=== PATIENT | male | born 1970 | race Caucasian/White ===

== ENCOUNTER 2025-06-05 11:14 | Inpatient (IN) | payer SELFPAY ==
[2025-06-05] VITALS (19 sets, daily range): BP systolic 109–158; BP diastolic 74–105; BMI 29.8; BMI 29.2
--- NOTE | 2025-06-05 08:50 | ED.GENMED ---
Addendum entered and electronically signed by Adan Medrano DO 06/05/25 17:51:
PROCEDURE NOTE:
After initial ED note signed, pt seized then had prolonged post-ictal state and very agitated
Intubated for airway protection
Gave 20mg Etomidate, 100mg Succhinylcholine
Intubated in 1 attempt w/ Glidescope
24cm at lip; 8.0 tube
Addendum entered and electronically signed by Riana Loja PA-C 06/05/25 12:46:
1230 - patient admitted to the hospitalist and pending bed upstairs. To the bedside by RN and family for witnessed seizure. Seizure activity was tonic-clonic and lasted about 2 minutes. Given 2 mg of Ativan IV. Keppra ordered. Hospitalist and
neurology updated. Patient's level of care upgraded to ICU.
Original Note:
History of Present Illness
<Riana Loja PA-C - Last Filed: 06/05/25 10:34>
General
Chief Complaint: Change in Mental Status
Time Seen by Provider: 06/05/25 08:45
History of Present Illness
History of Present Illness:
Miguel is a 54-year-old male with no reported past medical history woke up this morning and went to the bathroom and upon returning from the bathroom felt that he was confused and not acting his normal self. Patient just recalls waking up on
the couch but no other events.
arrives about an hour and a half after patient is able to provide more history. States that they had argument last night and she would put out 9:30 PM. Patient was reportedly throwing things and breaking things. Woke up this morning around 7
AM to hear him in the bathroom and he was unsure if he had fallen or if he was continuing to throw things. Went up to bedroom to find him on the bed saying help me.
Past History
<Riana Loja PA-C - Last Filed: 06/05/25 10:34>
Past History
ED Past Medical History: None
ED Past Surgical History: Orthopedic
Social History
Tobacco: Non-smoker
Alcohol: Occasional
Drug: None
Personal:
Living: with family
Employment: Employed
Family History
Family History: Other (Noncontributory)
Phy Exam
<Riana Loja PA-C - Last Filed: 06/05/25 10:34>
General Physical Exam
General Presentation: well appearing and no apparent distress
General Skin: warm and dry
General Habitus: normal
General Mental: alert and confused (oriented to person and place)
General Hydration: appears well hydrated
ENT Exam
ENT Exam: EOMI, pharynx normal, neck supple and normocephalic
Eye Exam
Eye Exam: PERRL, cornea clear and conjunctiva normal
Cardiovascular Exam
Cardiovascular Exam: regular rate/rhythm, no edema, no murmur and normal peripheral pulses
Pulmonary Exam
Pulmonary Exam: lungs clear, no respiratory distress, no rales, no crackles, no rhonchi, no stridor, no wheezing and no cough
Gastrointestinal Exam
Gastrointestinal Exam: normal bowel sounds, non tender, soft, no organomegaly, no pulsatile mass and non distended
Neurological Exam
Neurological Exam: alert, oriented x3, no motor deficits and speech normal
Musculoskeletal Exam
Musculoskeletal Exam: full ROM and no edema
Skin Exam
Skin Exam: normal color, warm/dry, no rash, no petechia and other (Left flank ecchymosis, abrasion right fourth finger, abrasion right archer)
Psychiatric Exam
Psychiatric Exam: normal mood/affect
Scores
<Riana Loja PA-C - Last Filed: 06/05/25 10:34>
NIH Stroke Score
Level of Consciousness: 0 - Alert
LOC Questions: 1-Answers one correctly
LOC Commands: 0-Performs both correctly
Best Horizontal Gaze: 0-Normal
Visual Mane: 0=Normal, no visual loss
Facial Palsy: 0=Normal, symmetrical
Motor - Right Arm: 0=No drift 10 seconds
Motor - Left Arm: 0=No drift 10 seconds
Motor - Right Le-No drift 5 seconds
Motor - Left Le-No drift 5 seconds
Limb Ataxia: 0-Absent
Sensation: 0-Normal
Best Language: 0-No aphasia
Dysarthria: 0-Normal
Extinction and Inattention: 0-No abnormality
NIH Total Score:: 1
<Adan Medrano DO - Last Filed: 06/05/25 10:45>
NIH Stroke Score
NIH Total Score:: 1
Course
<Riana Loja PA-C - Last Filed: 06/05/25 10:34>
Orders/Labs/Results
Orders:
Orders
06/05/25 08:41
CT Head W/o Iv Contrast Urgent
Comment:
Reason For Exam: AMS
06/05/25 08:45
CT Head & Neck Angio W/wo IV Urgent
Comment:
Reason For Exam: altered mental status
06/05/25 08:59
Alcohol Urgent
Complete Blood Count/With Diff Urgent
Comprehensive Metabolic Panel Urgent
Creatine Phosphokinase Urgent
Comment: ADD ON
PTT Urgent
Prothrombin Time Urgent
TSH Reflex To Free T4 Urgent
Comment: ADD ON
06/05/25 09:08
Ondansetron Injectable [Zofran] 4 mg IV NOW STA
06/05/25 09:09
Ondansetron Injectable [Zofran] 4 mg .ROUTE .STK-MED ONE
06/05/25 09:13
Electrocardiogram (*1) Urgent
Reason for Study: Vertigo / Dizzy
EKG- Treatment ONCE
06/05/25 09:14
Troponin I Urgent
06/05/25 09:27
Add On- LAB Urgent
Tests Added?: alcohol
06/05/25 10:01
Acetone [B-Hydroxybutyrate] Urgent
Lactic Acid Urgent
Venous Blood Gas Urgent
%Oxygen/Room Air: 96
06/05/25 10:15
Urine Drug Abuse Screen Urgent
Date Specimen was Collected: 06/05/25
Time Specimen was Collected: 10:13
06/05/25 10:18
Add On- LAB Routine
Tests Added?: CPK, TSH with reflex FT4
MRI Brain [MR Brain W/o & With Contrast] Routine
Comment:
Reason For Exam: transient amnesia
Recent pill cam endoscopy?: No
Abnormal Lab Results
06/05/25 06/05/25 06/05/25
08:59 09:03 10:01
Abs Immat Gran (auto) 0.1 H 10^3/uL
(0-0.05)
Absolute Neuts (auto) 6.8 H 10^3/uL
(1.4-6.5)
Immature Gran % 0.9 H %
(0-0.5)
VBG pH 7.31 L
(7.32-7.43)
VBG pO2 57 H mmHg
(30-50)
VBG HCO3 21.1 L mmol/L
(22-27)
Chloride 108 H mmol/L
(98-107)
Carbon Dioxide 16 L mmol/L
(22-30)
Glucose 188 H mg/dl
(70-99)
Lactic Acid 2.6 H mmol/L
(0.7-2.0)
POC Glucose 166 H mg/dl
(70-99)
06/05/25 08:59
06/05/25 08:59
Vital Signs
Initial and Last Documented VS:
Initial Vital Signs
Pulse Resp
79 17
06/05/25 08:59 06/05/25 08:59
Last Documented Vital Signs
Temp Pulse Resp BP Pulse Ox
36.7 C 69 16 132/93 99
06/05/25 09:04 06/05/25 10:30 06/05/25 10:30 06/05/25 10:00 06/05/25 09:04
<Adan Medrano, DO - Last Filed: 06/05/25 10:45>
Orders/Labs/Results
Orders:
Orders
06/05/25 08:41
CT Head W/o Iv Contrast Urgent
Comment:
Reason For Exam: AMS
06/05/25 08:45
CT Head & Neck Angio W/wo IV Urgent
Comment:
Reason For Exam: altered mental status
06/05/25 08:59
Alcohol Urgent
Complete Blood Count/With Diff Urgent
Comprehensive Metabolic Panel Urgent
Creatine Phosphokinase Urgent
Comment: ADD ON
PTT Urgent
Prothrombin Time Urgent
TSH Reflex To Free T4 Urgent
Comment: ADD ON
06/05/25 09:08
Ondansetron Injectable [Zofran] 4 mg IV NOW STA
06/05/25 09:09
Ondansetron Injectable [Zofran] 4 mg .ROUTE .STK-MED ONE
06/05/25 09:13
Electrocardiogram (*1) Urgent
Reason for Study: Vertigo / Dizzy
EKG- Treatment ONCE
06/05/25 09:14
Troponin I Urgent
06/05/25 09:27
Add On- LAB Urgent
Tests Added?: alcohol
06/05/25 10:01
Acetone [B-Hydroxybutyrate] Urgent
Lactic Acid Urgent
Venous Blood Gas Urgent
%Oxygen/Room Air: 96
06/05/25 10:15
Urine Drug Abuse Screen Urgent
Date Specimen was Collected: 06/05/25
Time Specimen was Collected: 10:13
06/05/25 10:18
Add On- LAB Routine
Tests Added?: CPK, TSH with reflex FT4
MRI Brain [MR Brain W/o & With Contrast] Routine
Comment:
Reason For Exam: transient amnesia
Recent pill cam endoscopy?: No
Abnormal Lab Results
06/05/25 06/05/25 06/05/25
08:59 09:03 10:01
Abs Immat Gran (auto) 0.1 H 10^3/uL
(0-0.05)
Absolute Neuts (auto) 6.8 H 10^3/uL
(1.4-6.5)
Immature Gran % 0.9 H %
(0-0.5)
VBG pH 7.31 L
(7.32-7.43)
VBG pO2 57 H mmHg
(30-50)
VBG HCO3 21.1 L mmol/L
(22-27)
Chloride 108 H mmol/L
(98-107)
Carbon Dioxide 16 L mmol/L
(22-30)
Glucose 188 H mg/dl
(70-99)
Lactic Acid 2.6 H mmol/L
(0.7-2.0)
POC Glucose 166 H mg/dl
(70-99)
06/05/25 08:59
06/05/25 08:59
Vital Signs
Initial and Last Documented VS:
Initial Vital Signs
Pulse Resp
79 17
06/05/25 08:59 06/05/25 08:59
Last Documented Vital Signs
Temp Pulse Resp BP Pulse Ox
36.7 C 69 16 132/93 99
06/05/25 09:04 06/05/25 10:30 06/05/25 10:30 06/05/25 10:00 06/05/25 09:04
<Riana Loja PA-C - Last Filed: 06/05/25 10:34>
MDM/Problems Addressed
Differential Diagnosis Includes:
Patient last known well greater than 4 hours prior to arrival. Initial NIH of 1 due to confusion. Patient was taken immediately to CAT scan for CT head and CTA head and neck which were negative for any intracranial injury or large vessel
occlusion. After returning from the CT patient started feeling nauseous and began vomiting. 4 mg of Zofran was given IV with improvement. Discussed with neurology who came to the bedside and evaluate the patient. His mental status did begin to
improve and he is starting to remember events of the night before this morning. Neurology feels that this is most likely transient global ischemia but would like to obtain MRI with and without contrast to rule out any structural abnormality and
EEG. EEG will be able to be completed until tomorrow. Patient will be admitted to the hospitalist service for continued workup
Also of noted his bicarb was 16. VBG lactic and acetone added on to rule out additional causes of altered mental status with this derangement. EG obtained and normal sinus rhythm. Troponin negative.
<Riana Loja PA-C - Last Filed: 06/05/25 10:34>
*Pulse Oximetry
Patient hypoxic: no
*Critical Care Note
Total Time (30-74mins, 75-104mins- exclusive of procedures): Not Applicable
ED Attending Note
<Riana Loja PA-C - Last Filed: 06/05/25 10:34>
-
Portions of this chart may have been created with voice recognition software.� Occasional wrong word or��sound alike� substitutions may have occurred due to the inherent limitations of voice recognition software.
<Adan Medrano, DO - Last Filed: 06/05/25 10:45>
ED Attending Note
Patient seen and examined by attending physician: Yes
I performed the substantive portion of visit, reviewed & personally made and approve the management plan that is documented in note by myself or ANNEMARIE.: Yes
ED Attending Note:
I evaluated patient at bedside. Limited history currently as family is not currently present. He woke up this morning confused. States that he went to bed last night around 10 PM. On exam he has trouble naming his age and naming the month.
Memory appears to be impaired. May have transient global amnesia. CT imaging obtained. He states he had some neurosurgical procedure in the past a few years ago that he thinks may have been a meningioma resection. Blood work suggest metabolic
acidosis.
Discharge Plan
Departure
Patient Disposition: Admit
Date of Disposition: 06/05/25
Time of Disposition: 10:17
Presentation/result/management discussed w/ accepting MD/DO: Hospitalist
Discharge Problem:
TGA (transient global amnesia), Altered mental status
Prescriptions:
No Action
No Current Medications
0
Interventions
Interventions:
*General Assessment Last Done: 06/05/25 09:04
*Neglect/Abuse Screening Last Done: 06/05/25 09:04
*ED COVID-19 Vaccine History Last Done: 06/05/25 09:04
*ED Influenza Vaccine History Last Done: 06/05/25 09:04
[facility] Fall Risk Assessment Tool Last Done: 06/05/25 09:04
*Risk Screen - Suicide (C-SSRS) Last Done: 06/05/25 09:04
ED- Pulmonary Assessment Last Done: 06/05/25 09:00
ED- Neurological Assessment Last Done: 06/05/25 09:00
ED- Cardiac Assessment Last Done: 06/05/25 09:00
ED Swallowing Screen Last Done: 06/05/25 10:39
Discharge Date and Time
Print Language: DANISH
[2025-06-05 09:05] LABS: Glucose - Point of Care 166 mg/dl (70-99)
[2025-06-05 09:09] LABS: Hematocrit 46.1 % (39.0-52.0); Hemoglobin 16.0 g/dL (13.0-18.0); Mean Corp Hgb Conc. 34.7 g/dL (33.0-37.0); Mean Corpuscular Volume 85.1 fL (80.0-94.0); Nucleated Red Blood Cells % 0 % (-); Platelet Count 205 10^3/uL (130-400); Red Cell Dist. Width 12.0 % (11.5-14.5)
[2025-06-05] MEDS: ZOFRAN 4 MG IV (09:11)
[2025-06-05 09:18] LABS: ALT (SGPT) 24 U/L (0-50); AST (SGOT) 26 U/L (17-59); Albumin 4.4 g/dl (3.5-5.0); Alkaline Phosphatase 57 U/L (38-126); Blood Urea Nitrogen 14 mg/dl (9-20); Calcium 9.1 mg/dl (8.4-10.2); Carbon Dioxide 16 mmol/L (22-30); Chloride 108 mmol/L (98-107); Estimated Creatinine Clearance 108 ml/min; Glucose 188 mg/dl (70-99); Potassium 4.5 mmol/L (3.5-5.1); Sodium 136 mmol/L (135-145); Total Protein 7.1 g/dl (6.3-8.2); eGFR > 60.00
[2025-06-05 09:27] LABS: INR 1.02; PT 13.5 Sec (11.4-14.6)
[2025-06-05 09:28] LABS: APTT 28.8 Sec (23.4-35.0)
[2025-06-05 09:44] LABS: Troponin I < 0.012 ng/ml
[2025-06-05 10:16] LABS: Venous Blood Gas B.E. -5.0 mmol/L (-4 to +4); Venous Blood Gas O2 Sat % 89.0 %
[2025-06-05 10:20] LABS: Venous Blood Gas O2 Therapy 96
--- NOTE | 2025-06-05 10:43 | HPS.HSE ---
Family Physician
-
Family Physician: NOT KNOW UNKNOWN - PT DOES
Chief Complaint
-
unresponsiveness
History of Present Illness
54yo M with PMHx of anxiety on medical marijuana leyla from home with episode of unresponsiveness. He had stressful evening due to argument with his that lasted all the way till 4am. At 7 am he came to the bedroom and went downtairs.
That is hen she heard a lot of noise, thinking that he is braking something in these and then it became quiet, so she went upstairs and found her on th bed, unresponsive drooling some saliva. He slowly regained cautiousness, but still was
confuesed. No spontaneous urination, defecation or tongue bite noted. No seizure like activity reported by bystanders. Seen in ED with neg CT and CTA head. Patient back to baseline when seen on this admiison. Basic labs unremarkable
Medical History
Past Medical History
Past Medical History: Reports Other
Additional Past Medical History:
See above
Past Surgical History: Reports Other
Additional Past Surgical History:
R humeral Fx s/p ORIF
Social History
Tobacco: Non-smoker
Alcohol: None
Drug: Marijuana
Family History
Family History: Not pertinent
Allergies / Home Medications
Allergies reflects when Allergies were last updated in [employer].
Home Medications with original date entered in [employer]
Allergy/Medication List:
Allergies
Allergy/AdvReac Type Severity Reaction Status Date / Time
No Known Allergies Allergy Verified 06/05/25 08:59
Home Medications
No Meds [No Current Medications] 06/05/25
Review of Systems
-
History Source: Patient and Family
A 12 point ROS was completed and negative except as noted: Yes
Constitutional: Reports See HPI
Physical Exam
Vital Signs
Vital Signs
Temp Pulse Resp BP Pulse Ox
98.1 F 69 16 132/93 99
06/05/25 09:04 06/05/25 10:30 06/05/25 10:30 06/05/25 10:00 06/05/25 09:04
Physical Exam
General: Well Developed, Well Nourished and No Apparent Distress
HEENT: NormoCephalic, Anicteric and Moist mucous membranes
Respiratory: Clear; No Wheezes or Crackles
Cardiac: S1/S2 and Regular Rhythm; No Murmur
GI: Soft, Non Tender and Non Distended
Musculoskeletal: No Clubbing, No Cyanosis and No Edema
Skin: Warm; No Rash or Jaundice
Neuro: Awake, Alert, Oriented, AO x 3, No Motor Deficits and Nonfocal/grossly intact
Psych: Calm
Laboratory Results
-
06/05/25 08:59
06/05/25 08:59
Laboratory Results
PT 13.5 Sec (11.4-14.6) 06/05/25 08:59
INR 1.02 06/05/25 08:59
APTT 28.8 Sec (23.4-35.0) 06/05/25 08:59
Lactic Acid 2.6 mmol/L (0.7-2.0) H 06/05/25 10:01
Total Bilirubin 0.7 mg/dl (0.2-1.3) 06/05/25 08:59
AST 26 U/L (17-59) 06/05/25 08:59
ALT 24 U/L (0-50) 06/05/25 08:59
Alkaline Phosphatase 57 U/L (38-126) 06/05/25 08:59
Troponin I < 0.012 ng/ml 06/05/25 09:14
Data Reviewed
-
CT Scan: Report Reviewed by me
Lab Data: Labs Reviewed by me
Impression/Plan
-
A/P:
#Episode of unresponsiveness, unclear if true seizure with transient amnesia
can be provoked by fatigue and lack of sleep
Neurology consult
Seizure precautions
MRI brain and EEG
UDS pending, alcohol not detected
telemetry, check TSH, Echo
#Hyperglycemia
BS less then 200, in spite of mild acidosis on BMP - no concern for possible DKA, since not diabetic and progressively improves, no abd symptoms. Will follow BMP and Accuchecks
check HgbA1c
DVT ppx SCDs
Full code
I have spent at least 75min reviewing chart, test results, communication with consultants and providing direct patient care
[2025-06-05] MEDS: TYLENOL 1000 MG PO (11:05)
[2025-06-05 12:09] LABS: D-Dimer 1.69 ug/mlFEU (0.00-0.50)
--- NOTE | 2025-06-05 12:34 | W.PN.UPDATE ---
Update Note
Progress Note Update
Will possible syncope - checked ddimer, which is elevated, reasonable for CTA chest and LE US to exclude DVT. Since not hypoxic and no LE swelling- will not initiate therapeutic anticoagulation until resulted
--- NOTE | 2025-06-05 12:35 | EDCM ---
Reviewed chart and met with pt bedside in ED. Lives with his and 2 daughters in split level home. No JOSE, 4 steps up to foyer/LR. Has half bath on main level, 15 additional steps to Bedroom and full bath.
Independent in ADLs, personal care and ambulation at baseline. No assistive devices.
PMH is anxiety.
Has not seen a doctor in many years, is not insured. Had previously been on 's plan but came off due to expense. Email sent to Kirt from [facility], pt does work so unsure if he would qualify for MA.
[email or web address] and [facility] for [facility].
No PCP, does not take any prescription meds and does not know what pharmacy he would use.
No hx HH or SNF.
Anticipate discharge home, CM will continue to follow.
[2025-06-05] MEDS: ATIVAN 2 MG IV ×2 (12:39→12:59)
--- NOTE | 2025-06-05 12:41 | ED.GENMED ---
History of Present Illness
General
Chief Complaint: Change in Mental Status
Time Seen by Provider: 06/05/25 08:45
Past History
Past History
ED Past Medical History: None
ED Past Surgical History: Orthopedic
Social History
Tobacco: Non-smoker
Alcohol: Occasional
Drug: None
Personal:
Living: with family
Employment: Employed
Family History
Family History: Other (Noncontributory)
Course
Orders/Labs/Results
Orders:
Orders
06/05/25 08:41
CT Head W/o Iv Contrast Urgent
Comment:
Reason For Exam: AMS
06/05/25 08:45
CT Head & Neck Angio W/wo IV Urgent
Comment:
Reason For Exam: altered mental status
06/05/25 08:59
Alcohol Urgent
Complete Blood Count/With Diff Urgent
Comprehensive Metabolic Panel Urgent
Creatine Phosphokinase Urgent
Comment: ADD ON
D-Dimer Urgent
Comment: ADD ON
PTT Urgent
Prothrombin Time Urgent
TSH Reflex To Free T4 Urgent
Comment: ADD ON
06/05/25 09:08
Ondansetron Injectable [Zofran] 4 mg IV NOW STA
06/05/25 09:09
Ondansetron Injectable [Zofran] 4 mg .ROUTE .STK-MED ONE
06/05/25 09:13
Electrocardiogram (*1) Urgent
Reason for Study: Vertigo / Dizzy
EKG- Treatment ONCE
06/05/25 09:14
Troponin I Urgent
06/05/25 09:27
Add On- LAB Urgent
Tests Added?: alcohol
06/05/25 10:01
Acetone [B-Hydroxybutyrate] Urgent
Lactic Acid Urgent
Venous Blood Gas Urgent
%Oxygen/Room Air: 96
06/05/25 10:15
Urine Drug Abuse Screen Urgent
Date Specimen was Collected: 06/05/25
Time Specimen was Collected: 10:13
06/05/25 10:18
Add On- LAB Routine
Tests Added?: CPK, TSH with reflex FT4
MRI Brain [MR Brain W/o & With Contrast] Routine
Comment:
Reason For Exam: transient amnesia
Recent pill cam endoscopy?: No
06/05/25 10:44
Admit/Transfer Patient As Directed
Co-Sign Provider:
Level of Care: Inpatient admission
Assign to:: Telemetry
Physician / Group: Hospitalist
Diagnosis: unresponsiveness
Reason for Telemetry: Arrhythmia
Date to Stop Telemetry: 06/08/25
Time to Stop Telemetry: 11:00
Reason for Hospitalization: unresponsiveness
Expected length of stay greater than two midnights?: Yes
ELOS- Estimated Length of Stay in days: 2
I certify the patient meets the requirements for IP care: Yes
06/05/25 10:45
Code Status As Directed
Resuscitation Status: Full Code
PRN Pain Medication Management As Directed
May give lesser potent ordered pain med per pt: Yes
preference::
Protocol:: Medication orders for pain may be administered in a
manner that supports deferring to patient preference
when the pt is:
- Requesting an ordered lesser potent pain medication.
Least to most potent pain medications are defined
as: acetaminophen < NSAID < tramadol < opioids
(morphine, oxycodone, hydromorphone).
- Requesting a lesser dose of the same medication IF
ORDERED.
- Requesting a less intrusive route of administration
if both routes are prescribed by the provider (PO <
IV).
06/05/25 11:02
Acetaminophen [Tylenol] 1,000 mg .ROUTE .STK-MED ONE
06/05/25 11:04
Acetaminophen [Tylenol] 1,000 mg PO NOW STA
06/08/25 11:00
DC Protocol for Telemetry ONCE
Abnormal Lab Results
06/05/25 06/05/25 06/05/25
08:59 09:03 10:01
Abs Immat Gran (auto) 0.1 H 10^3/uL
(0-0.05)
Absolute Neuts (auto) 6.8 H 10^3/uL
(1.4-6.5)
Immature Gran % 0.9 H %
(0-0.5)
D-Dimer 1.69 H ug/mlFEU
(0.00-0.50)
VBG pH 7.31 L
(7.32-7.43)
VBG pO2 57 H mmHg
(30-50)
VBG HCO3 21.1 L mmol/L
(22-27)
Chloride 108 H mmol/L
(98-107)
Carbon Dioxide 16 L mmol/L
(22-30)
Glucose 188 H mg/dl
(70-99)
Lactic Acid 2.6 H mmol/L
(0.7-2.0)
U Marijuana (THC) Screen
POC Glucose 166 H mg/dl
(70-99)
06/05/25
10:15
Abs Immat Gran (auto)
Absolute Neuts (auto)
Immature Gran %
D-Dimer
VBG pH
VBG pO2
VBG HCO3
Chloride
Carbon Dioxide
Glucose
Lactic Acid
U Marijuana (THC) Screen Positive H
(Negative)
POC Glucose
06/05/25 08:59
06/05/25 08:59
Vital Signs
Initial and Last Documented VS:
Initial Vital Signs
Pulse Resp
79 17
06/05/25 08:59 06/05/25 08:59
Last Documented Vital Signs
Temp Pulse Resp BP Pulse Ox
36.7 C 72 19 123/74 99
06/05/25 09:04 06/05/25 11:00 06/05/25 11:00 06/05/25 11:00 06/05/25 09:04
*Pulse Oximetry
SaO2: 99
Oxygen Mode of Delivery: Room air
Update Note
Update Note:
1241 -patient was admitted to the hospital service and awaiting bed upstairs. Called to the side by family and RN for witnessed seizure activity. 2 mg of Ativan IV ordered and given. Seizure activity was tonic-clonic and lasted about 2 minutes.
1500 grams of Keppra also ordered. Hospitalist and neurology notified.
ED Attending Note
-
Portions of this chart may have been created with voice recognition software.� Occasional wrong word or��sound alike� substitutions may have occurred due to the inherent limitations of voice recognition software.
Discharge Plan
Departure
Patient Disposition: Admit
Date of Disposition: 06/05/25
Time of Disposition: 10:17
Presentation/result/management discussed w/ accepting MD/DO: Hospitalist
Discharge Problem:
TGA (transient global amnesia), Altered mental status
Interventions
Interventions:
*General Assessment Last Done: 06/05/25 09:04
*Neglect/Abuse Screening Last Done: 06/05/25 09:04
*ED COVID-19 Vaccine History Last Done: 06/05/25 09:04
*ED Influenza Vaccine History Last Done: 06/05/25 09:04
[facility] Risk Assessment Tool Last Done: 06/05/25 09:04
*Risk Screen - Suicide (C-SSRS) Last Done: 06/05/25 09:04
ED- Pulmonary Assessment Last Done: 06/05/25 09:00
ED- Neurological Assessment Last Done: 06/05/25 09:00
ED- Cardiac Assessment Last Done: 06/05/25 09:00
ED Swallowing Screen Last Done: 06/05/25 10:39
--- NOTE | 2025-06-05 12:43 | W.PN.UPDATE ---
Update Note
Progress Note Update
Witnessed seizure in ED lasting 2min - stopped with ativan
Ativan PRN
Load and cont Keppra
ICU monitoring
--- NOTE | 2025-06-05 12:49 | CON.NEURO4 ---
Addendum entered and electronically signed by Carlito Weeks MD 06/05/25 20:15:
Seizure precautions including no driving for 6 months and [facility]
Original Note:
Consultation - Neurology 4
-
CONSULTING PHYSICIAN: Dr. Carlito Weeks
REFERRING PHYSICIAN: Dr. Marco Antonio Morales
DICTATED BY: Dr. Carlito Weeks
DATE/TIME OF REQUEST: 06/05/2025
DATE/TIME OF CONSULTATION: 06/05/2025
Reason for Consultation: Altered mental status
ASSESSMENT AND PLAN:
The patient is a 54 years old male with a past medical history of anxiety, marijuana use, who was found to have altered mental status by his at around 8 in the morning. The patient's also noted that he had froth coming out of the mouth.
There is no history of a tongue bite. The patient was brought to the ED, however in the ED the patient's mental status improved and he returned to his baseline mental status. The history was provided by the patient's and daughter who were
present at the bedside. The patient had a witnessed seizure in the ED lasting about 2 minutes which was stopped with Ativan. The patient also had urinary incontinence with this episode. The patient was loaded with Keppra in the ED. The patient
had a prolonged postictal state and was very agitated therefore he was intubated for airway protection in the ED.
EEG
MRI brain with and without IV contrast
Continue Keppra 1,000 milligram twice a day.
The patient had 3 episodes of seizure-like activity today, one of them was at home prior to being transferred to ED and then he had 2 witnessed seizure-like episodes in the hospital. Will keep the patient for now on Keppra 1000 mg twice a day while
the workup is being done.
History of Present Illness:
The patient is a 54 years old male with a past medical history of anxiety, marijuana use, who was found to have altered mental status by his at around 8 in the morning. The patient's also noted that he had froth coming out of the mouth.
There is no history of a tongue bite. The patient was brought to the ED, however in the ED the patient's mental status improved and he returned to his baseline mental status. The history was provided by the patient's and daughter who were
present at the bedside. The patient had a witnessed seizure in the ED lasting about 2 minutes which was stopped with Ativan. The patient also had urinary incontinence with this episode. The patient was loaded with Keppra in the ED. The patient
had a prolonged postictal state and was very agitated therefore he was intubated for airway protection in the ED.
Past Medical History:
None
Social History:
Non-smoker
Review of Systems:
10 point ROS was negative aside from as given the above history of present illness.
Neurologic Examination:
Alert and oriented x 3, the patient knows his age and the month of the year
Speech is clear
The cranial nerves II to XII grossly intact
The motor strength is grossly 5/5 bilaterally in the upper and lower extremities
Sensation is grossly intact
There is no limb ataxia seen
NOTE: This Neurologic Examination was done prior to the time when the patient had a seizure-like episode in the ED. The patient was later intubated and sedated.
Vital Signs and Labs
-
Vital Signs and Labs:
Vital Signs
Temp Pulse Resp BP Pulse Ox
37.0 C 68 20 150/99 100
06/05/25 19:19 06/05/25 16:15 06/05/25 16:15 06/05/25 16:01 06/05/25 19:54
Lab Results
06/05/25 08:59
06/05/25 08:59
PT 13.5 Sec (11.4-14.6) 06/05/25 08:59
INR 1.02 06/05/25 08:59
APTT 28.8 Sec (23.4-35.0) 06/05/25 08:59
Sodium 136 mmol/L (135-145) 06/05/25 08:59
Potassium 4.5 mmol/L (3.5-5.1) 06/05/25 08:59
BUN 14 mg/dl (9-20) 06/05/25 08:59
Glucose 188 mg/dl (70-99) H 06/05/25 08:59
Calcium 9.1 mg/dl (8.4-10.2) 06/05/25 08:59
Ur Buprenorphine Negative (Negative) 06/05/25 10:15
Medications
-
Active Medications
Generic Name Dose Route Start Last Admin
Trade Name Freq PRN Reason Stop Dose Admin
Acetaminophen 650 mg 06/05/25 14:09
Acetaminophen 325 Mg Tablet PO 07/03/25 14:08
Q4HPRN PRN
mild pain/REYNOSO/temp> 100.4F
Bisacodyl 10 mg 06/05/25 14:09
Bisacodyl 10 Mg Rectal Suppository RECTAL 07/03/25 14:08
[id number] PRN
constipation
Dextrose 12.5 grams 06/05/25 14:09
Dextrose 50% (0.5 Grams/Ml) 50 Ml Syringe IV 07/03/25 14:08
[id number] PRN
hypoglycemia
Protocol
Enoxaparin Sodium 40 mg 06/06/25 18:00
Enoxaparin Sodium 40 Mg/0.4 Ml Syringe SC 07/04/25 17:59
QPM RASTA
Fentanyl Citrate 50 mcg 06/05/25 13:07
Fentanyl (50 Mcg/Ml) 100 Mcg/2 Ml Ampul IV 06/19/25 13:06
[id number] PRN
see protocol
Protocol
Glucagon 1 mg 06/05/25 14:09
Glucagon 1 Mg Vial IM 07/03/25 14:08
PRN PRN
hypoglycemia
Protocol
Fentanyl Citrate 1,000 mcg in 100 mls @ 0 mls/hr 06/05/25 13:15 06/05/25 13:36
Sublimaze IV 100 mls
PER PROTOCOL RASTA Administration
Protocol
Per Protocol
Propofol 1,000,000 mcg in 100 mls @ 0 mls/hr 06/05/25 13:15 06/05/25 18:32
Diprivan IV 100 mls
PER PROTOCOL RASTA Administration
Protocol
Per Protocol
Lactated Ringer's 1,000 mls @ 80 mls/hr 06/05/25 19:00 06/05/25 18:21
Lr IV 1,000 mls
.[id number] RASTA Administration
Insulin Aspart 0 units 06/05/25 19:50
Insulin Aspart Low Resistance 300 Units/3 Ml Pen.Injctr SC 07/03/25 14:08
Q6 RASTA
Protocol
Levetiracetam 1,000 mg 06/05/25 20:00 06/05/25 19:48
Levetiracetam (100 Mg/Ml) 500 Mg/5 Ml Vial IV 07/03/25 19:59 1,000 mg
Q12 RASTA Administration
Lorazepam 2 mg 06/05/25 12:40
Lorazepam 2 Mg/Ml Vial IV 07/03/25 12:39
Q4HPRN PRN
if seizures
Ondansetron HCl 4 mg 06/05/25 14:09
Ondansetron 4 Mg/2 Ml Vial IV 07/03/25 14:08
Q8HPRN PRN
nausea and vomiting
Polyethylene Glycol 17 grams 06/06/25 08:00
Polyethylene Glycol Powder 17 Grams Packet TUBE 07/04/25 07:59
DAILY RASTA
Polyethylene Glycol 17 grams 06/05/25 14:09
Polyethylene Glycol Powder 17 Grams Packet PO 07/03/25 14:08
DAILYPRN PRN
constipation
Senna/Docusate Sodium 1 tablet 06/05/25 14:09
Docusate W/Senna (Silvia-Colace) Tablet PO 07/03/25 14:08
BIDPRN PRN
constipation
Sodium Chloride 0 ml 06/05/25 14:00
Sodium Chloride 0.9% (Preservative Free) 10 Ml Vial IV 07/03/25 13:59
PRN PRN
IV Lorazepam dilution
Protocol
Home Medications
�Medication �Instructions �Recorded
No Meds [No Current Medications] 06/05/25
--- NOTE | 2025-06-05 13:00 | EDRN ---
1303- 20mg etomidate given
1303- 200mg succinylcholine given
1305- 24@ lip 8.0 tube, good color change
OG tube placed in R nare, 65@nare
x-ray taken and tube now 23@ lip
[2025-06-05] MEDS: KEPPRA 1500 MG IV (13:07)
[2025-06-05] MEDS: DIPRIVAN 100 IV ×5 (13:11→21:17)
[2025-06-05] MEDS: SUBLIMAZE 100 MCG IV (13:35)
[2025-06-05] MEDS: SUBLIMAZE 100 IV ×2 (13:36→23:17)
[2025-06-05 14:01] LABS: B.E. -9.5 mmol/L; HCO3 16.5 mmol/L (21-28); O2 Saturation % 100.0 % (94-98); O2 Therapy 96; PCO2 36 mmHg (35-48); PO2 498 mmHg (83-108)
[2025-06-05 14:32] LABS: Glucose - Point of Care 151 mg/dl (70-99)
[2025-06-05 14:35] LABS: Triglycerides 111 mg/dl (10-149)
--- NOTE | 2025-06-05 16:17 | PTCARENOTE ---
- 14:30 new admission from ER. Status post witnessed Seizure. patient received intubated, For Sedation on propofol 10mcg and Fentanyl 100mcg. On continues Ceribell EEG; Restraints b/l soft wrist. and 2 daughters at bedside, updates provided.
-upon admission RASS +4: restless, attempting of pulling ETT . Propofol increased from 10 to 20 then 30, then 50 . Fentanyl at 100mcg. Both infusing via Left wrist peripheral line. Pupils equal and reactive. B/l UE soft restraints; Ceribell
monitoring, no seizure activities detected.
-Normal Sinus Rhythm 71 No edema, pedal pulses palatable. BP via RT Upper arm : 150/99 MAP 113;
-Intubated in ED: ETT 01/29; Vent: S/CMV: 20/500/+5/40. No oral and ETT secretions
-Abdomen soft round bowel sounds present . NJ tube inserted in ER. NJ L-I section
-Condom catheter placed
-peripheral lines x 2 left hand
-skin: skin tears
--- NOTE | 2025-06-05 17:53 | CON.INTV ---
Consultation
Consultation Request
Date/Time Consultation Requested: 06/05/2024
Date/Time Consultation Performed: 06/05/2025
Requesting Provider: Dr. Morales
Performing Provider: Dr. Jake Dasilva
Reason for Consultation: Acute seizure/acute hypercapnic respiratory failure
Medical History
-
History of Present Illness:
54-year-old male with past medical history of anxiety, on medical marijuana brought into the emergency room for an episode of responsiveness. Apparently patient had a stressful night with arguments with his up until 4 AM in the morning.
found the unresponsive, drooling in the bed. Slowly regained consciousness. Was confused postevent.
No reports of urine or fecal incontinence
No seizure-like activity was noted
CT of the head and angiogram in the emergency room was negative for acute abnormalities.
While in the emergency room patient has additional seizure lasting about 2 minutes. Ativan given loaded with Keppra. Intubated for airway protection and hypercapnia.
Transferred to the critical care unit for further care.
Past Medical History
Past Medical History: Other (See assessment and plan)
Social History
Tobacco: Non-smoker
Alcohol: None
Drug: Marijuana
Family History
Family History: Unable to Obtain
Allergies / Home Medications
Allergies
Allergy/AdvReac Type Severity Reaction Status Date / Time
No Known Allergies Allergy Verified 06/05/25 08:59
Home Medications
�Medication �Instructions �Recorded �Confirmed �Last Taken �Type
No Meds [No Current Medications] 06/05/25 06/05/25 Unknown History
Review of Systems
-
Unable to Obtain full review of systems at this time due to: Acuity and Patient Intubation
Vitals / Labs / Diagnostic Testing
Vital Signs
Temp Pulse Resp BP Pulse Ox
98.4 F 68 20 150/99 100
06/05/25 14:23 06/05/25 16:15 06/05/25 16:15 06/05/25 16:01 06/05/25 16:15
Lab Data
06/05/25 08:59
06/05/25 08:59
Laboratory Results
06/05/25 06/05/25
08:59 13:53
PT 13.5
INR 1.02
APTT 28.8
pH 7.27 L
pCO2 36
pO2 498 H
HCO3 16.5 L
O2 Delivery Level 96
Diagnostic Testing:
Physical Exam
-
HEENT: Normocephalic
Cardiovascular: S1/S2
Respiratory: Clear and Non-Labored Respirations
GI: Soft and Non Distended
Neurology: Other (Intubated, on mechanical ventilation.)
Skin: Warm
General: Comfortable
Assessment
-
54-year-old male with past medical history noted. Found by after having significant argument in his bed unresponsive and drooling. Slowly regain consciousness. Came to the emergency room where he had a witnessed seizure for about 2 minutes.
Ativan given and improved. Required intubation and mechanical ventilation. Transferred to the critical care unit for further care.
(Patient apparently had a stressful night arguing with his until 4 AM) episode occurred at 7 AM.
Abrupt mental status change-possibly new onset seizures.
1 at home and 1 witnessed in the emergency room where he was intubated and placed on mechanical ventilation
Negative CT head/negative CT angiogram of the brain.
Negative alcohol level
Hypercapnic respiratory failure secondary to above: Intubated 06/05/2025.
Chest x-ray 06/05/2025: ET tube in place. Right middle lobe abnormality-possible atelectasis. Cannot rule out aspiration
Increased lactic acid-likely postictal
Hyperglycemia
Metabolic acidosis-likely postictal
Conditions present prior admission: None
Anxiety-medical marijuana.
Medications prior admission: None
Assessment and plan:
New onset seizures.
CT of the head and angiogram negative
Neurology evaluated patient: Recommended Keppra loading
Cerebral EEG monitoring.
Eventual MRI of the brain
UDS negative
Alcohol negative
-
Acute hypercapnic respiratory failure: Postictal.
Mechanical ventilation settings reviewed
AC/500/20/40%
Peak pressure 19
ET tube without secretions.
Chest x-ray with ET tube in place next
Initial ABG 7./36/498.
Repeat ABG later today-mechanical ventilation will be adjusted as necessary
-
Continue with sedation-propofol/fentanyl.
Sedation breaks per protocol
Target RASS score 0 to -1
-
Monitor for fevers-no need for antibiotics at this point
Chest x-ray with possible right middle lobe abnormality could be aspiration pneumonitis versus atelectasis
-
Increased D-dimer:? Postictal
Currently 40% FiO2
Pulmonary mechanics acceptable
Not tachycardic or hypotensive.
EKG normal sinus rhythm. No EKG. No evidence for RV strain.
Clinical picture not consistent with thromboembolic disease.
CT angiogram has been ordered per primary team.
At this point hemodynamically stable, not tachycardic. Not significantly hypoxemic.
Can hold, perform only if there is symptoms suggestive of thromboembolic disease. Tachycardia, hypoxemia etc.
-
Metabolic acidosis-likely postictal.
Repeat lactic level
Gentle IV fluids
-
Hyperglycemia: Not known diabetic-could be post stress
Hemoglobin A1c
Continue to monitor
-
DVT prophylaxis-subcu Lovenox
Protonix for GI prophylaxis
N.p.o. for now
Head of the bed elevation
-
Critical care statement: A total of 38 minutes of critical care time was provided for this patient today. This includes management of unstable vital signs, evaluation of the patient at bedside, reviewing the patient's pertinent medical records
including ventilator settings, arterial blood gases, radiographs, microbiology, laboratory evaluations and discussion with primary team, critical care nursing, and respiratory therapy.
[2025-06-05] MEDS: LR 1000 IV (18:21)
[2025-06-05 18:44] LABS: B.E. -6.3 mmol/L; HCO3 18.1 mmol/L (21-28); O2 Saturation % 99.6 % (94-98); PCO2 32 mmHg (35-48); PO2 163 mmHg (83-108)
[2025-06-05 18:56] LABS: Glucose - Point of Care 102 mg/dl (70-99)
[2025-06-05 19:29] LABS: Troponin I 0.049 ng/ml
[2025-06-05] MEDS: KEPPRA 1000 MG IV (19:48)
--- NOTE | 2025-06-05 20:10 | PTCARENOTE ---
Resumed care of pt this evening. Received pt intubated and sedated. Pt on prop and fent gtts. Pt has cerebell in place and shows 0% seizure burden. Pt tolerating vent settings satting at 97% pulse ox.
[2025-06-05 23:49] LABS: Glucose - Point of Care 105 mg/dl (70-99)
[2025-06-06] VITALS (19 sets, daily range): BP systolic 120–157; BP diastolic 78–102; BMI 29.4
--- NOTE | 2025-06-06 00:30 | PTCARENOTE ---
No seizure activity noted. Pt continues to tolerate vent settings satting at 97% pulse ox.
[2025-06-06 01:45] LABS: Troponin I 0.061 ng/ml
--- NOTE | 2025-06-06 04:00 | PTCARENOTE ---
Cerebell continues to show 0% seizure burden.
[2025-06-06] MEDS: DIPRIVAN 100 IV ×2 (04:19→07:00)
[2025-06-06 04:39] LABS: B.E. -3.3 mmol/L; HCO3 20.3 mmol/L (21-28); O2 Saturation % 98.9 % (94-98); PCO2 32 mmHg (35-48); PO2 92 mmHg (83-108)
[2025-06-06 05:37] LABS: Blood Urea Nitrogen 13 mg/dl (9-20); Calcium 8.9 mg/dl (8.4-10.2); Carbon Dioxide 17 mmol/L (22-30); Chloride 113 mmol/L (98-107); Estimated Creatinine Clearance 90 ml/min; Glucose 104 mg/dl (70-99); Magnesium 2.4 mg/dl (1.6-2.3); Potassium 3.7 mmol/L (3.5-5.1); Sodium 138 mmol/L (135-145); eGFR > 60.00
[2025-06-06 05:40] LABS: Troponin I 0.047 ng/ml
[2025-06-06 05:44] LABS: Hematocrit 42.8 % (39.0-52.0); Hemoglobin 14.9 g/dL (13.0-18.0); Mean Corp Hgb Conc. 34.8 g/dL (33.0-37.0); Mean Corpuscular Volume 84.9 fL (80.0-94.0); Platelet Count 152 10^3/uL (130-400); Red Cell Dist. Width 12.1 % (11.5-14.5)
[2025-06-06] MEDS: LR 1000 IV (05:59)
[2025-06-06] MEDS: KEPPRA 1000 MG IV (07:31)
[2025-06-06] MEDS: MIRALAX 17 GRAMS TUBE (07:31)
--- NOTE | 2025-06-06 07:57 | PTCARENOTE ---
Addendum entered by Eliana Gaitan RN 06/06/25 10:00:
weaning sedation. cerebell removed per MD at bedside
Original Note:
report received, assessments per work list. fentanyl and propofol per work list. cerebell in place. 0% seizure burden.patient arouses to tactile stimulation does not follow commands, restless attempts to sit up. wrist restraints maintained for
patient safety. monitor nsr. ett to vent, scant secretions. cc in place,voiding large amounts yellow urine. [place] sump placement verified. family at [facility]. safe environment maintained.
--- NOTE | 2025-06-06 08:08 | W.RAPID.EEG ---
Rapid EEG
-
Procedure Date: 06/05/25
Patient Status: Inpatient
Results:
Impression:
Absence of status epilepticus
Recording Information:
Diagnostic Recording Time: 17:10:00 (1030 minutes)
Recording 1: [email or web address]
Start Time: Jun 05, 2025 14:16 PM End Time: Jun 06, 2025 07:26 AM
Recording Technique: This EEG was obtained using a 10 lead, 8 channel system positioned circumferentially without any parasagittal coverage (rapid EEG). Computer selected EEG is reviewed as well as background features and all clinically significant
events. Clarity algorithm utilized and implemented to provide analysis of underlying activity and seizure detection used to facilitate reading. ICD-10 Code [id number]
Clinical History: BARI SPRAGUE is a 54 year old Prior Seizure patient undergoing EEG to screen for non-convulsive status epilepticus.
Recording Information:
Diagnostic Recording Time: 00:46:16 (46 minutes)
Recording 1: [email or web address]
Start Time: Jun 05, 2025 13:27 PM End Time: Jun 05, 2025 14:14 PM
Recording Technique: This EEG was obtained using a 10 lead, 8 channel system positioned circumferentially without any parasagittal coverage (rapid EEG). Computer selected EEG is reviewed as well as background features and all clinically significant
events. Clarity algorithm utilized and implemented to provide analysis of underlying activity and seizure detection used to facilitate reading. ICD-10 Code [id number]
[2025-06-06 08:34] LABS: Glycohemoglobin (HgbA1c) 5.4 % (4.0-5.9)
--- NOTE | 2025-06-06 08:48 | W.PN.NEURO.1 ---
Addendum entered and electronically signed by Dhruv Cohen MD 06/06/25 11:06:
Studies reviewed.
I have personally examined the patient. I reviewed and agree with the HOSPITAL INSURANCE CLERK's Note.
My addenda:
Unresponsive to verbal stimuli. Intubated. No acute distress.
[place].
Follows no requests. No tremor.
Negative doll's eyes. Questionably positive corneal response on the left. Did spontaneously move right side with physical stimulation
Neck: full ROM.
Chest: no dyspnea
Heart: no JVD
Ext: (-) Clubbing, (-) Cyanosis, (-) Edema
IMPRESSIONS/RECOMMENDATIONS:
Abrupt onset of reported seizure-like activity with change in mental status
Unclear if events represent electrical seizures or cardiac events or psychogenic events or toxic metabolic abnormality
Attempt to wean down sedation and discontinue intubation
Replace levetiracetam with brivaracetam to avoid agitation
Check EEG after discontinuance of sedation if patient has inadequate return to responsiveness
Provide thiamine
D/W patient / family / nursing
All questions answered.
Will continue to follow patient.
Original Note:
Today's Communication / Plan
-
-obtain brain MRI to look for structural abnormalities
-may discontinue EEG, no evidence of status epilepticus
-switch Levetiracetam to Brivaracetam 100 mg IV BID due to agitation
-seizure precautions
-follow up with our neurology office outpatient
Neuro Assessment/Plan
Assessment
The patient is a 54 year old male with a past medical history of anxiety, marijuana use, who presented to [facility] on 06/05/2025 for evaluation of altered mental status.
Head CT 06/05/2025: No acute intracranial abnormality noted.
Head/neck CTA 06/05/2025: No acute vascular pathology. No M1 nor M2 occlusion.
EEG 06/05/2025: Absence of status epilepticus
Plan
Impression: abrupt onset of change in mental status most likely due to seizure activity, unclear etiology as lab work thus far unrevealing
-obtain brain MRI to look for structural abnormalities
-may discontinue EEG, no evidence of status epilepticus
-switch Levetiracetam to Brivaracetam 100 mg IV BID due to agitation
-seizure precautions
-patient should be reported to [facility] and cannot drive for 6 months
-follow up with our neurology office outpatient
All questions encouraged and answered, plan of care discussed with Dr. Cohen and family (patient intubated and sedated)
Subjective/Objective
Subjective Data
Date of Service: June 06, 2025
Pt intubated and sedated, exam limited. and daughter at bedside. EEG did not show status epilepticus.
Objective Data
Vital Signs
Temp Pulse Resp BP Pulse Ox
98.8 F 86 20 123/90 95
06/06/25 07:23 06/06/25 06:15 06/06/25 06:15 06/06/25 06:00 06/06/25 08:07
Lab Results
06/06/25 04:54
06/06/25 04:54
PT 13.5 Sec (11.4-14.6) 06/05/25 08:59
INR 1.02 06/05/25 08:59
APTT 28.8 Sec (23.4-35.0) 06/05/25 08:59
Sodium 138 mmol/L (135-145) 06/06/25 04:54
Potassium 3.7 mmol/L (3.5-5.1) 06/06/25 04:54
BUN 13 mg/dl (9-20) 06/06/25 04:54
Glucose 104 mg/dl (70-99) H 06/06/25 04:54
Calcium 8.9 mg/dl (8.4-10.2) 06/06/25 04:54
Ur Buprenorphine Negative (Negative) 06/05/25 10:15
Patient Allergies
No Known Allergies Allergy (Verified 06/05/25 08:59)
Physical Exam
-
pt intubated and sedated, physical exam limited
General: Comfortable and Appears Stated Age
HEENT: Other (intubated)
Cardiac: No JVD
GI: Non-distended
Skin: Unremarkable
Extremities: No Clubbing, No Cyanosis and No Edema
Psych: Unable to Assess
Extended Neurological Exam
Mood & Affect: Unable to Assess
Attention Span & Concentration: Unable to assess
Memory: Unable to Assess
Speech: Unable to Assess
Cranial Nerve II: Left Eye: Unable to Assess
Cranial Nerve II: Right Eye: Unable to Assess
Cranial Nerves III, IV, : Extraocular Movement: Absent Doll's Eyes
Muscle Strength, Overall: Unable to Assess
Data Reviewed
-
CT Head: Report Reviewed and Image Reviewed
MRI Head: Ordered
EEG: Report Reviewed
Medical Test Reports: Report Reviewed
Labs: Report Reviewed
Reviewed with: Physician and Family
Old Records: Summarized
[2025-06-06] MEDS: BRIVIACT 100 MG IV ×2 (09:02→20:51)
--- NOTE | 2025-06-06 11:13 | W.PN.HOSP.TC ---
Today's Communication/Plan
-
Attempt to wean sedation and extubate
Continue AEDs
MRI brain
Echo
Assessment / Plan
Assessment / Plan
54M with anxiety p/w episode of unresponsiveness. He returned to baseline mental status, then had witnessed tonic-clonic seizure episode in the ED, followed by prolonged post ictal state and severe agitation, and was sedated and intubated for airway
protection.
Seizure episodes
EEG performed, no epilepsy seen.
Discontinue Ceribell
Keppra changed to Bivaceracetam due to patient's agitation
Wean sedation, extubate when able
MRI brain
Workup for toxic/metabolic encephalopathy, syncope. Ketones negative, alcohol negative, UDS negative except for nonmedical marijuana, TSH is WNL. Check UA/Ucx/blood cultures.
If does not return to baseline, will have repeat EEG
If no seizure identified, consider PNES
Elevated troponin
Echo pending
Telemetry monitoring
Elevated D-dimer noted, see below
Elevated D-dimer
No E/O hypoxia or tachycardia. Lower extremity Dopplers negative for DVT. CT chest PE study ordered but on hold for now.
NAGMA
Ketones negative, alcohol negative. On VBG, pCO2 is WNL.
[place] to be postictal, getting IVF. Lactic acid was elevated on admit, but went down to 1.1.
Anxiety
Per history, seems consistent with PTSD. Daughter also notes he may have said he has bipolar? Not seeing a therapist or psychiatrist. He is on medical marijuana. Also with recent behavioral changes unclear if there is any acute psych disorder.
Will need psych eval.
DVT PPx
Lovenox
Anticipated Discharge: > 48 hours
Subjective/Interval History
-
Date of Service: June 06, 2025
Patient intubated, sedated. Per RN at bedside, patient with severe agitation requiring max sedation medication earlier. His and daughter at bedside noted he has had history of trauma in childhood and earlier in adulthood, and recent stressors
related to family, with dramatic behaviors such as pulling off the handrail in the house out of anger/stress. No psych diagnosis or meds except than medical marijuana and does not follow with therapist. No previous MRIs or CTs of the brain. No
previous epilepsy episodes. No recent illness. LLE is chronically swollen. Neurology team also at bedside and updated family on negative EEG findings. Family updated on plan of care and all questions answered as able.
Objective Data
-
Labs:
Laboratory Results
06/06/25 06/06/25
04:27 04:54
WBC 14.9 H
Hgb 14.9
Hct 42.8
Plt Count 152 D
HCO3 20.3 L
Sodium 138
Potassium 3.7
Chloride 113 H
Carbon Dioxide 17 L
BUN 13
Creatinine 1.2
Glucose 104 H
Calcium 8.9
Vital Signs:
Vital Signs
Temp Pulse Resp BP Pulse Ox
98.8 F 85 17 152/98 97
06/06/25 07:23 06/06/25 11:00 06/06/25 11:00 06/06/25 11:00 06/06/25 11:00
I&O
06/05/25 06/06/25 06/07/25
06:59 06:59 06:59
Intake Total 1761.9 / 1886.0 549.4 / 549.4
Output Total 750 / 750 650 / 650
Balance 1011.9 / 1136.0 -100.6 / -100.6
Review of Systems
-
Unable to obtain full review of systems at this time due to: Patient Intubation
Physical Exam
-
General: Other (Intubated, sedated)
HEENT: Anicteric, PERRLA and Other (ETT)
Respiratory: Clear to Auscultation; Negative Wheezes, Rales or Rhonchi
Cardiac: Regular Rhythm and S1/S2; Negative Murmur, Rub or Gallop
GI: Soft, Nontender, Nondistended and Normal Bowel Sounds
Genito-urinary: L[place]
Musculoskeletal: No Edema and Edema, Left Lower Extrem; Negative Edema, Right Lower Extrem
Skin: Warm and Dry; Negative Rash, Ulcers or Lesions
Neuro: Sedated and Other (Spontaneous movements of right arm during exam)
Hematologic / Lymphatic: No Lymphadenopathy
Psych: Calm
Data Reviewed
-
Diagnostic Radiology: Image personally visualized and interpreted and Report Reviewed by me
CT Scan: Report Reviewed by me, Discussed with Physician and Discussed with Family
Ultrasound: Report Reviewed by me and Discussed with Family
Labs: Labs Reviewed by me and Discussed with Family
--- NOTE | 2025-06-06 11:14 | PTCARENOTE ---
sedation off per work list. patient agitated but able to redirect with family at bedside, patient extubated@1040, ngt removed. restraints off. oriented and cooperative.
--- NOTE | 2025-06-06 11:50 | PTCARENOTE ---
patient reassessed. voice raspy. c/o headache in back of head. large lump noted on back of head. passed swallow evaluation. bed alarm on, call diaz in reach. TT to hospitalist, classification clerk to update
[2025-06-06 11:56] LABS: Glucose - Point of Care 106 mg/dl (70-99)
[2025-06-06] MEDS: TYLENOL 650 MG PO (12:03)
[2025-06-06] MEDS: THIAMINE INJECTION 100 MG IV (12:03)
--- NOTE | 2025-06-06 13:11 | W.PN.INTV ---
Today's Communication / Plan
Recommendations
- Wean off propofol and fentanyl
- Initiate Precedex, SAT and SBT
- Extubated to nasal cannula
- Stable for transfer out of ICU
- [facility] [employer] [facility] service will sign off, please call as needed
Assessment
-
54-year-old male with past medical history noted. Found by after having significant argument in his bed unresponsive and drooling. Slowly regain consciousness. Came to the emergency room where he had a witnessed seizure for about 2 minutes.
Ativan given and improved. Required intubation and mechanical ventilation. Transferred to the critical care unit for further care.
(Patient apparently had a stressful night arguing with his until 4 AM) episode occurred at 7 AM.
Abrupt mental status change-possibly new onset seizures.
1 at home and 1 witnessed in the emergency room where he was intubated and placed on mechanical ventilation
Negative CT head/negative CT angiogram of the brain.
Negative alcohol level
Hypercapnic respiratory failure secondary to above: Intubated 06/05/2025.
Chest x-ray 06/05/2025: ET tube in place. Right middle lobe abnormality-possible atelectasis. Cannot rule out aspiration
Increased lactic acid-likely postictal
Hyperglycemia
Metabolic acidosis-likely postictal
Conditions present prior admission: None
Anxiety-medical marijuana.
Medications prior admission: None
Assessment and plan:
New onset seizures.
CT of the head and angiogram negative
Status post Keppra, off EEG
MRI pending
Urine tox positive for marijuana
-
Acute hypercapnic respiratory failure: Postictal.
06/06, patient placed on Precedex, SAT/SBT initiated. More awake and alert, subsequently extubated to nasal cannula 06/06
No significant hypoxia noted, current presentation not typical for pulmonary embolism
Minimal troponin elevation noted, downtrending already. No chest pain reported. Echocardiogram pending.
-
Metabolic acidosis-likely postictal.
Repeat lactic level improving
Gentle IV fluids
-
Hyperglycemia: Not known diabetic-could be post stress
Hemoglobin A1c
Continue to monitor
-
DVT prophylaxis-subcu Lovenox
Protonix for GI prophylaxis
-
Critical care statement: A total of 39 minutes of critical care time was provided for this patient today. This includes management of unstable vital signs, evaluation of the patient at bedside, reviewing the patient's pertinent medical records
including ventilator settings, arterial blood gases, radiographs, microbiology, laboratory evaluations and discussion with primary team, critical care nursing, and respiratory therapy.
Subjective Dataa
Subjective Data
Date of Service:
Date of Service: June 06, 2025
Subjective:
Patient comfortable lying in bed in no acute distress.
Review of Systems
General: Unobtainable - Sedation
Objective Data
Data Reviewed
Vital Signs / I&O / Oxygen:
Vital Signs
Temp Pulse Resp BP Pulse Ox
99.3 F 77 21 152/98 96
06/06/25 12:07 06/06/25 11:30 06/06/25 11:30 06/06/25 11:00 06/06/25 11:30
Intake and Output
06/05/25 06/06/25 06/07/25
06:59 06:59 06:59
Intake Total 1761.9 / 1886.0 629.4 / 629.4
Output Total 750 / 750 1300 / 1300
Balance 1011.9 / 1136.0 -670.6 / -670.6
SaO2 [A/C] 96
SaO2 96
Nasal Cannula flow liters per 4
minute
Physical Exam
General: Comfortable
HEENT: Normocephalic
Cardiovascular: S1-S2
Respiratory: Clear
GI: Soft and Non Distended
Neurology: Awake and Alert
Skin: Warm
Labs/Micro/Reports
Lab Data
06/06/25 04:54
06/06/25 04:54
Laboratory Results
06/05/25 06/05/25 06/06/25
13:53 18:29 04:27
pH 7.27 L 7.36 7.41
pCO2 36 32 L 32 L
pO2 498 H 163 H 92
HCO3 16.5 L 18.1 L 20.3 L
O2 Delivery Level 96
--- NOTE | 2025-06-06 13:53 | PTCARENOTE ---
Addendum entered by Eliana Gaitan RN 06/06/25 14:45:
medicated with oxycodone per orders. high falls risk precautions maintained
Addendum entered by Eliana Gaitan RN 06/06/25 14:03:
echo at bedside. patient with unrelieved headache and back pain. hospitalist updated with assessments
Original Note:
patient taken and returned from MRI. tele orders
[2025-06-06 14:01] LABS: Urine Character Clear (Clear)
[2025-06-06 14:15] LABS: Urine Squamous Cell 0-2 /LPF (Few)
[2025-06-06 14:16] LABS: Urine Red Blood Cell 0-2 /HPF (0-2); Urine White Cell 0-2 /HPF (0-5)
[2025-06-06] MEDS: ROXICODONE 5 MG PO ×2 (14:28→20:16)
[2025-06-06] MEDS: LOVENOX 40 MG SC (17:28)
[2025-06-06 17:44] LABS: Glucose - Point of Care 121 mg/dl (70-99)
--- NOTE | 2025-06-06 21:23 | PTCARENOTE ---
Pt received from ICU. Was able to walk a few steps to bedside. Alert and Oriented x3, seizure precautions in place, call diaz within reach, bed alarm intact. Complains of 10/10 left shoulder pain, says it feels like its been dislocated due to his
recent fall.
--- NOTE | 2025-06-06 21:25 | TRANSFER ---
Pt tsx'd to [facility] bed [id number] via hospital bed. Personal belongings transported w/ patient and . Report given to [facility] Jerilyn OLSON
[2025-06-07] MEDS: ROXICODONE 5 MG PO ×3 (00:53→23:46)
[2025-06-07 03:00] VITALS: BP 140/76
[2025-06-07 07:00] VITALS: BP 140/96
--- NOTE | 2025-06-07 08:33 | W.PN.NEURO.1 ---
Addendum entered and electronically signed by Dhruv Cohen MD 06/07/25 11:11:
Studies reviewed.
I have personally examined the patient. I reviewed and agree with the TOWER HELPER's Note.
My addenda:
Awake, alert, interactive. No acute distress.
Speech intact.
Follows 2-step requests w/o difficulty. No tremor.
Extra-ocular movements grossly intact.
Facial movements full and symmetric. Hearing intact to normal conversational volume.
Normal UE movements bilaterally.
Neck: full ROM.
Chest: no dyspnea
Heart: no JVD
Ext: (-) Clubbing, (-) Cyanosis, (-) Edema
IMPRESSIONS/RECOMMENDATIONS:
Abrupt onset of seizures
Unclear etiology
check EEG > 1 hour
continue Brivaracetam likely for 2 years
report to [facility], reviewed with patient and spouse
D/W patient / family
All questions answered.
Will continue to follow as outpatient.
Original Note:
Today's Communication / Plan
-
-obtain routine EEG to ensure absence of seizures
-continue to Brivaracetam 100 mg BID
-seizure precautions
Neuro Assessment/Plan
Assessment
The patient is a 54 year old male with a past medical history of anxiety, marijuana use, who presented to [facility] on 06/05/2025 for evaluation of altered mental status.
Head CT 06/05/2025: No acute intracranial abnormality noted.
Head/neck CTA 06/05/2025: No acute vascular pathology. No M1 nor M2 occlusion.
EEG 06/05/2025: Absence of status epilepticus
Brain MRI 06/06/2025:
1. SEVERE ENHANCING SUBCUTANEOUS EDEMA in the POSTERIOR SCALP SOFT TISSUES (greatest posterolateral to the right occipital bone) which appears new from 06/05/2025. Acute infectious or inflammatory cellulitis is a diagnostic possibility.
2. Mild diffuse cerebral and cerebellar volume loss.
3. 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
4. Minimal periventricular white matter leukoaraiosis in the frontal lobes.
5. Mild paranasal sinus mucosal disease.
6. 2.5 cm complex sebaceous cyst in the scalp lateral to the left parietal bone.
Plan
Impression: abrupt onset of change in mental status most likely due to seizure activity, unclear etiology as work up thus far unrevealing
-obtain routine EEG to ensure absence of seizures
-continue to Brivaracetam 100 mg BID
-seizure precautions
All questions encouraged and answered, plan of care discussed with Dr. Cohen and family (patient intubated and sedated)
Subjective/Objective
Subjective Data
Date of Service: June 07, 2025
Patient extubated yesterday. No acute overnight events. States he remembers sitting on the couch before he went to bed which was 5am and was angry but does not remember waking up or having a seizure. He does remember sitting on the cough and
speaking to the police. States his head hurts and his left shoulder hurts.
Objective Data
Vital Signs
Temp Pulse Resp BP Pulse Ox
98.7 F 95 16 140/76 95
06/07/25 03:00 06/07/25 03:00 06/07/25 03:00 06/07/25 03:00 06/07/25 03:00
PT 13.5 Sec (11.4-14.6) 06/05/25 08:59
INR 1.02 06/05/25 08:59
APTT 28.8 Sec (23.4-35.0) 06/05/25 08:59
Sodium 138 mmol/L (135-145) 06/06/25 04:54
Potassium 3.7 mmol/L (3.5-5.1) 06/06/25 04:54
BUN 13 mg/dl (9-20) 06/06/25 04:54
Glucose 104 mg/dl (70-99) H 06/06/25 04:54
Calcium 8.9 mg/dl (8.4-10.2) 06/06/25 04:54
Ur Buprenorphine Negative (Negative) 06/05/25 10:15
Patient Allergies
No Known Allergies Allergy (Verified 06/05/25 08:59)
Physical Exam
-
General: Appears Stated Age
HEENT: Normocephalic
Neck: Full Range of Motion
Respiratory: No Dyspnea
Cardiac: No JVD
GI: Non-distended
Skin: Unremarkable
Extremities: No Clubbing, No Cyanosis and No Edema
Psych: Unremarkable
Extended Neurological Exam
Mood & Affect: Mood Unremarkable
Attention Span & Concentration: Awake, Alert, Interactive and No Difficulty with 2 Step Request
Memory: Vague
Involuntary Movement: None
Speech: Quality Unremarkable, Quantity Unremarkable and Rate of Production Unremarkable
Cranial Nerve VII: Facial Symmetry: Normal Facial Symmetry
Cranial Nerve VIII: Hearing: Unremarkable Hearing to Normal Conversational Volume
Muscle Strength, Overall: Full Throughout
Pronator Drift: No Drift in Upper Extremities and No Drift in Lower Extremities
Coordination: [id number] Testing Unremarkable
--- NOTE | 2025-06-07 08:34 | W.PN.NEURO.1 ---
Neuro Assessment/Plan
Assessment
The patient is a 54 year old male with a past medical history of anxiety, marijuana use, who presented to [facility] on 06/05/2025 for evaluation of altered mental status.
Head CT 06/05/2025: No acute intracranial abnormality noted.
Head/neck CTA 06/05/2025: No acute vascular pathology. No M1 nor M2 occlusion.
EEG 06/05/2025: Absence of status epilepticus
Plan
Impression: abrupt onset of change in mental status most likely due to seizure activity, unclear etiology as lab work thus far unrevealing
-obtain brain MRI to look for structural abnormalities
-may discontinue EEG, no evidence of status epilepticus
-switch Levetiracetam to Brivaracetam 100 mg IV BID due to agitation
-seizure precautions
-patient should be reported to [facility] and cannot drive for 6 months
-follow up with our neurology office outpatient
All questions encouraged and answered, plan of care discussed with Dr. Cohen and family (patient intubated and sedated)
Subjective/Objective
Subjective Data
Date of Service: June 07, 2025
Objective Data
Vital Signs
Temp Pulse Resp BP Pulse Ox
37.1 C 95 16 140/76 95
06/07/25 03:00 06/07/25 03:00 06/07/25 03:00 06/07/25 03:00 06/07/25 03:00
PT 13.5 Sec (11.4-14.6) 06/05/25 08:59
INR 1.02 06/05/25 08:59
APTT 28.8 Sec (23.4-35.0) 06/05/25 08:59
Sodium 138 mmol/L (135-145) 06/06/25 04:54
Potassium 3.7 mmol/L (3.5-5.1) 06/06/25 04:54
BUN 13 mg/dl (9-20) 06/06/25 04:54
Glucose 104 mg/dl (70-99) H 06/06/25 04:54
Calcium 8.9 mg/dl (8.4-10.2) 06/06/25 04:54
Ur Buprenorphine Negative (Negative) 06/05/25 10:15
Patient Allergies
No Known Allergies Allergy (Verified 06/05/25 08:59)
Past History
Past History
ED Past Medical History: Other (LOC)
ED Past Surgical History: Orthopedic
Social History
Tobacco: Non-smoker
Alcohol: Occasional
Drug: None
Personal:
Living: with family
Employment: Employed
Family History
Family History: Other (Noncontributory)
Medications
-
Medications:
Generic Name Dose Route Start Last Admin
Trade Name Freq PRN Reason Stop Dose Admin
Acetaminophen 650 mg 06/05/25 14:09 06/06/25 12:03
Acetaminophen 325 Mg Tablet PO 07/03/25 14:08 650 mg
Q4HPRN PRN Administration
mild pain/REYNOSO/temp> 100.4F
Bisacodyl 10 mg 06/05/25 14:09
Bisacodyl 10 Mg Rectal Suppository RECTAL 07/03/25 14:08
[id number] PRN
constipation
Brivaracetam 100 mg 06/06/25 08:00 06/06/25 20:51
Brivaracetam (10 Mg/Ml) 5 Ml Vial IV 06/20/25 07:59 100 mg
BID RASTA Administration
Dextrose 12.5 grams 06/05/25 14:09
Dextrose 50% (0.5 Grams/Ml) 50 Ml Syringe IV 07/03/25 14:08
[id number] PRN
hypoglycemia
Protocol
Enoxaparin Sodium 40 mg 06/06/25 18:00 06/06/25 17:28
Enoxaparin Sodium 40 Mg/0.4 Ml Syringe SC 07/04/25 17:59 40 mg
QPM RASTA Administration
Glucagon 1 mg 06/05/25 14:09
Glucagon 1 Mg Vial IM 07/03/25 14:08
PRN PRN
hypoglycemia
Protocol
Insulin Aspart 0 units 06/06/25 14:40 06/06/25 17:34
Insulin Aspart Low Resistance 300 Units/3 Ml Pen.Injctr SC 07/03/25 19:49 Not Given
AC RASTA
Protocol
Lorazepam 2 mg 06/05/25 12:40
Lorazepam 2 Mg/Ml Vial IV 07/03/25 12:39
Q4HPRN PRN
if seizures
Ondansetron HCl 4 mg 06/05/25 14:09
Ondansetron 4 Mg/2 Ml Vial IV 07/03/25 14:08
Q8HPRN PRN
nausea and vomiting
Oxycodone HCl 5 mg 06/06/25 13:56 06/07/25 00:53
Oxycodone 5 Mg Regular Release Tablet PO 06/20/25 13:55 5 mg
Q4HPRN PRN Administration
MODERATE TO SEVERE PAIN
Polyethylene Glycol 17 grams 06/06/25 08:00 06/06/25 07:31
Polyethylene Glycol Powder 17 Grams Packet TUBE 07/04/25 07:59 17 grams
DAILY RASTA Administration
Polyethylene Glycol 17 grams 06/05/25 14:09
Polyethylene Glycol Powder 17 Grams Packet PO 07/03/25 14:08
DAILYPRN PRN
constipation
Senna/Docusate Sodium 1 tablet 06/05/25 14:09
Docusate W/Senna (Silvia-Colace) Tablet PO 07/03/25 14:08
BIDPRN PRN
constipation
Sodium Chloride 0 ml 06/05/25 14:00
Sodium Chloride 0.9% (Preservative Free) 10 Ml Vial IV 07/03/25 13:59
PRN PRN
IV Lorazepam dilution
Protocol
Thiamine HCl 100 mg 06/06/25 12:00 06/06/25 12:03
Thiamine (100 Mg/Ml) 2 Ml Vial IV 06/09/25 11:59 100 mg
DAILY RASTA Administration
[2025-06-07 09:01] LABS: Glucose - Point of Care 121 mg/dl (70-99)
[2025-06-07 11:00] VITALS: BP 141/85
[2025-06-07] MEDS: BRIVIACT 100 MG IV ×2 (11:35→19:23)
[2025-06-07] MEDS: THIAMINE INJECTION 100 MG IV (11:35)
[2025-06-07] MEDS: MIRALAX 17 GRAMS TUBE (11:35)
[2025-06-07 12:05] LABS: Hematocrit 40.7 % (39.0-52.0); Hemoglobin 14.1 g/dL (13.0-18.0); Mean Corp Hgb Conc. 34.6 g/dL (33.0-37.0); Mean Corpuscular Volume 84.3 fL (80.0-94.0); Nucleated Red Blood Cells % 0 % (-); Platelet Count 154 10^3/uL (130-400); Red Cell Dist. Width 11.9 % (11.5-14.5)
[2025-06-07 12:28] LABS: Glucose - Point of Care 115 mg/dl (70-99)
[2025-06-07 12:47] LABS: Blood Urea Nitrogen 12 mg/dl (9-20); Calcium 8.9 mg/dl (8.4-10.2); Carbon Dioxide 25 mmol/L (22-30); Chloride 108 mmol/L (98-107); Estimated Creatinine Clearance 108 ml/min; Glucose 94 mg/dl (70-99); HDL Cholesterol 35 mg/dl; LDL Cholesterol, Calculated 96 mg/dl; Potassium 3.8 mmol/L (3.5-5.1); Sodium 136 mmol/L (135-145); Very Low Density Lipoprotein 32 mg/dl (0-30); eGFR > 60.00
[2025-06-07 12:58] LABS: Glycohemoglobin (HgbA1c) 5.2 % (4.0-5.9)
--- NOTE | 2025-06-07 13:50 | W.PN.HOSP.TC ---
Today's Communication/Plan
-
Consulted ortho for L shoulder pain/dislocation
Continue briviact
Psych consult
Assessment / Plan
Assessment / Plan
54M with anxiety p/w episode of unresponsiveness. He returned to baseline mental status, then had witnessed tonic-clonic seizure episode in the ED, followed by prolonged post ictal state and severe agitation, and was sedated and intubated for airway
protection. He was extubated successfully.
Seizure episodes
EEG performed, no epilepsy seen.
Discontinued Ceribell. Routine EEG. Etiology unclear per neurology.
Keppra changed to Bivaceracetam due to patient's agitation. Continue 100 mg twice daily, will need Rx on discharge.
MRI brain with 6.8 mm chronic ischemic infarct in left cerebellar hemisphere, minimal periventricular white matter leukoaraiosis in the frontal lobes, mild paranasal sinus mucosal disease. On the scalp posteriorly there is severe enhancing
subcutaneous edema (on exam this is not consistent with cellulitis, rather a bump/small lac from the trauma)
Workup for toxic/metabolic encephalopathy, syncope. Ketones negative, alcohol negative, UDS negative except for known medical marijuana, TSH is WNL. UA with no E/O UTI. Pending Ucx/blood cultures.
Left shoulder pain
Patient cannot lift left arm, thinks its dislocated
Shoulder x-ray performed, reviewed by me. Also had CT of chest which captured shoulder injury. Report reviewed, concern for ' reverse Hill-Sachs defect', remains slight posterior subluxation of humeral head relative to the glenoid but without
loy dislocation. Probably during seizure episode he dislocated.
Ortho consulted, appreciate recs. Probably needs outpatient MRI to look for rotator cuff injury
Anxiety
Per history, seems consistent with PTSD. Daughter also notes he may have said he has bipolar? Not seeing a therapist or psychiatrist. He is on medical marijuana. Also with recent behavioral changes unclear if there is any acute psych disorder.
Consulted psych
elevated troponin
Echo is WNL except for mild
Telemetry monitoring so far unremarkable
Elevated D-dimer noted, see below
Suspected nonischemic myocardial injury
Elevated D-dimer
No E/O hypoxia or tachycardia. Lower extremity Dopplers negative for DVT. CT chest PE study negative for PE
NAGMA�resolved
Ketones negative, alcohol negative. On VBG, pCO2 is WNL.
Tilly to be postictal, s/p IVF. Lactic acid was elevated on admit, but went down to 1.1.
Leukocytosis
Due to seizure. Improved to 11.3
DVT PPx
Lovenox
Anticipated Discharge: Within 24 hours
Subjective/Interval History
-
Date of Service: June 07, 2025
Patient complaining of pain in the back of his head where he hit it. Also pain in his left shoulder, cannot lift his arm, thinks he dislocated it. States he does not remember the fall/seizure itself or being in the ED at all. He remembers being
very angry the night before the fall happened, he remembers seeing a environmental science instructor in his house, then he remembers waking up intubated when sedation was lifted. Updated patient and on plan of care, MRI brain results.
Objective Data
-
Labs:
Laboratory Results
06/07/25
11:47
WBC 11.3 H
Hgb 14.1
Hct 40.7
Plt Count 154
Sodium 136
Potassium 3.8
Chloride 108 H
Carbon Dioxide 25
BUN 12
Creatinine 1.0
Glucose 94
Calcium 8.9
Vital Signs:
Vital Signs
Temp Pulse Resp BP Pulse Ox
98.6 F 82 18 141/85 96
06/07/25 11:00 06/07/25 11:00 06/07/25 11:00 06/07/25 11:00 06/07/25 11:00
I&O
06/06/25 06/07/25 06/08/25
06:59 06:59 06:59
Intake Total 1761.9 / 1886.0 1589.4 / 1589.4
Output Total 750 / 750 1400 / 1400
Balance 1011.9 / 1136.0 189.4 / 189.4
Review of Systems
-
History Source: Patient
All other systems: Reviewed and negative
Physical Exam
-
General: No Apparent Distress
HEENT: Moist Mucous Membranes, Anicteric and PERRLA
Respiratory: Clear to Auscultation; Negative Wheezes, Rales or Rhonchi
Cardiac: Regular Rhythm and S1/S2; Negative Murmur, Rub or Gallop
GI: Soft, Nontender, Nondistended and Normal Bowel Sounds
Genito-urinary: Larson
Musculoskeletal: No Edema, Edema, Left Lower Extrem and Other (Pain at left glenohumeral joint on palpation, cannot lift L arm due to pain); Negative Edema, Right Lower Extrem
Skin: Warm and Dry; Negative Rash, Ulcers or Lesions
Neuro: Awake, AO x 3, No Motor Deficits, Nonfocal/Grossly Intact and Central Nerve's Intact
Hematologic / Lymphatic: No Lymphadenopathy
Psych: Calm
Data Reviewed
-
Diagnostic Radiology: Image personally visualized and interpreted and Report Reviewed by me
CT Scan: Report Reviewed by me, Discussed with Physician and Discussed with Family
Ultrasound: Report Reviewed by me and Discussed with Family
Labs: Labs Reviewed by me and Discussed with Family
--- NOTE | 2025-06-07 14:25 | EEG.RPT ---
Electroencephalogram Report
Recording
Date of EE06/07/25
Type of EEG: Routine
Length of EEG recordin minutes
Done with Video Recording: Yes
Patient Status: Inpatient
Recording Conditions: Awake, Drowsy and Asleep
Hyperventilation Performed: Yes
Photic Stimulation Performed: Yes
Report
LESS THAN 1 HOUR EEG INTERPRETATION:
Unremarkable EEG for age
CLINICAL CORRELATION:
A normal EEG does not rule out a diagnosis of epilepsy. If clinical suspicion for seizure persists, a prolonged recording may be warranted.
Clinical correlation is advised.
METHODS:
A 21 channel digitized electroencephalogram (EEG) was performed using the 10/20 international system of electrode placement and one-lead of ECG recorded. The [employer] quantitative EEG system was utilized.
ELECTROENCEPHALOGRAPHER IMPRESSION(S):
Quality of study
Good
Background
There was an unremarkable anterior-posterior voltage gradient of alpha frequency.
With eye opening the background activity changed to a low voltage mixture of frequencies.
There were no significant asymmetries of background activity noted.
Sleep
Drowsiness present
Stage 1 present
Stage 2 present
Photic Stimulation
No activation
ECG
Normal sinus rhythm
[2025-06-07 15:00] VITALS: BP 137/85
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
[2025-06-07 18:01] LABS: Glucose - Point of Care 98 mg/dl (70-99)
[2025-06-07] MEDS: LOVENOX 40 MG SC (18:01)
[2025-06-07] MEDS: TYLENOL 650 MG PO (18:02)
[2025-06-07 19:56] VITALS: BP 152/95
[2025-06-07 21:05] LABS: Glucose - Point of Care 111 mg/dl (70-99)
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
[2025-06-07 23:51] VITALS: BP 141/87
[2025-06-08 03:41] VITALS: BP 116/64
[2025-06-08 05:56] VITALS: BP 136/79
[2025-06-08 07:00] VITALS: BP 139/84
[2025-06-08 07:36] LABS: Glucose - Point of Care 106 mg/dl (70-99)
[2025-06-08 07:59] LABS: Hematocrit 40.2 % (39.0-52.0); Hemoglobin 14.0 g/dL (13.0-18.0); Mean Corp Hgb Conc. 34.8 g/dL (33.0-37.0); Mean Corpuscular Volume 85.0 fL (80.0-94.0); Nucleated Red Blood Cells % 0 % (-); Platelet Count 150 10^3/uL (130-400); Red Cell Dist. Width 11.7 % (11.5-14.5)
[2025-06-08] MEDS: THIAMINE INJECTION 100 MG IV (08:14)
[2025-06-08] MEDS: BRIVIACT 100 MG IV (08:15)
[2025-06-08] MEDS: MIRALAX TUBE (08:19)
[2025-06-08 08:51] LABS: Blood Urea Nitrogen 14 mg/dl (9-20); Calcium 8.9 mg/dl (8.4-10.2); Carbon Dioxide 22 mmol/L (22-30); Chloride 109 mmol/L (98-107); Estimated Creatinine Clearance 120 ml/min; Glucose 92 mg/dl (70-99); Potassium 3.8 mmol/L (3.5-5.1); Sodium 138 mmol/L (135-145); eGFR > 60.00
[2025-06-08] MEDS: TYLENOL 650 MG PO (08:55)
--- NOTE | 2025-06-08 18:54 | W.DCSUMMARY ---
Discharge Summary
Discharge Data
Date of Admission: 06/05/25
Date of Discharge: 06/08/25
Total time spent discharging patient (in min): 50
-
Pending Results: No
Hospital Course
Attending physician on day of discharge:
Lakeisha Puente MD
Discharge diagnosis:
Seizure
Secondary diagnoses:
PTSD
Left rotator cuff tear
Consultations:
Neurology
Box Car Checker
Psychiatry
Orthopedic surgery
Procedures:
None
Hospital course:
54M with anxiety p/w episode of unresponsiveness. He returned to baseline mental status, then had witnessed tonic-clonic seizure episode in the ED, followed by prolonged post ictal state and severe agitation, and was sedated and intubated for airway
protection. He was extubated successfully. On EEG there was no epilepsy seen. Etiology of seizure is unclear. Patient was initially placed on Keppra, but due to agitation this was changed to Briviact. Workup was performed including MRI brain
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 Toxic and infectious workup was also negative. Patient had injury to the back of his head from the fall
which resulted in subcutaneous edema which was also seen on the MRI brain. He also had injury to his left shoulder, x-ray showed reverse Hils Sachs defect, Ortho was consulted, diagnosed patient with left rotator cuff tear, recommended outpatient
MRI and outpatient follow-up. Given his stress/anger in the lead up to the seizure event, psych was consulted, who felt he had PTSD, recommended talk therapy, outpatient referral was ordered. Patient was given prescription for Briviact and advised
to have outpatient neurology follow-up. After discharge patient's family called that the pharmacy did not have Briviact in stock for the next 2 days, they requested a few doses of Keppra as a bridge, which was ordered.
Physical exam on discharge:
Gen: NAD
Resp: Breathing comfortably
MSK: No edema
Psych: Calm
Neuro: AAOx3
Discharge disposition:
Home
Discharge Plan
-
Patient Disposition: Home (Routine Discharge)
Discharge Diagnosis/Procedures: Seizure, L rotator cuff tear
Diet: Regular
Activity: As tolerated
Driving Restrictions: No driving
Instructions: Brivaracetam, Driving Restrictions, Rotator Cuff Tear Exercises, Seizures in adults - ED (DC)
Referrals:
Rory Deleon MD [Active, Psychiatry]
Dhruv Cohen MD [Active, Neurology]
Joshua Tubbs MD [Active, Orthopedics]
UNKNOWN - PT DOES,NOT KNOW [Family Provider]
Additional Discharge Medication Instructions: Take the anti-seizure drug bivaracetam as directed and follow up with a primary care doctor and neurologist for refills. You will need to take this for 2 years at least. Also follow up with the
orthopedic surgeon about your rotator cuff injury. Also follow up with the psychiatrist or a psychologist for therapy. Call their offices to make appointments.
Prescriptions:
New
brivaracetam [Briviact] 100 mg tablet
100 mg PO BID Qty: 60 2RF
levetiracetam [Keppra] 1,000 mg tablet
1,000 mg PO BID Qty: 4 0RF
Discharge Orders:
Discharge Patient (As Directed); Ordered 06/08/25
Ordered By: Lakeisha Puente
Discharge Date and Time
Discharge Date/Time: 06/08/25 10:10
Print Language: [place]
== END 2025-06-08 10:10 | disposition home or self-care (01) | DRG 101 ==
LOC: 4 WEST ACU 11:14
PROVIDERS: Nurse Practitioner Family; Psychiatry & Neurology Neurology; Surgery Trauma Surgery; ADMITTING PHYSICIAN Internal Medicine; ATTENDING PHYSICIAN Internal Medicine; CONSULT PHYSICIAN Internal Medicine Critical Care Medicine; CONSULT PHYSICIAN Psychiatry & Neurology Psychiatry; CONSULT PHYSICIAN Student in an Organized Health Care Education/Training Program; EMERGENCY PHYSICIAN Emergency Medicine; OTHER PHYSICIAN Psychiatry & Neurology Neurology
PROC: 0BH17EZ Insertion of Endotracheal Airway into Trachea, Via Natural or Artificial Opening (ICD-10-PCS; 2025-06-05)
PROC: XX20X89 Monitoring of Brain Electrical Activity, Computer-aided Detection and Notification, New Technology Group 9 (ICD-10-PCS; 2025-06-05)
DX: R56.9 Unspecified convulsions (principal); I5A Non-ischemic myocardial injury (non-traumatic); E87.20 Acidosis, unspecified; F41.9 Anxiety disorder, unspecified; F43.10 Post-traumatic stress disorder, unspecified; S46.012A Strain of muscle(s) and tendon(s) of the rotator cuff of left shoulder, initial encounter; W19.XXXA Unspecified fall, initial encounter
CPT/HCPCS: 36600; 70450; 70496; 70498; 70553; 71045; 71275; 73030; 80048; 80053; 80061; 80306; 81003; 81015; 82010; 82077; 82550; 82805; 82962; 83036; 83605; 83735; 84443; 84478; 84484; 85025; 85027; 85379; 85610; 85730; 87040; 93005; 93306; 93970; 94002; 94003; 95708; 95813; 96374; 99285; A9575; Q9967